=== PATIENT | male | born 1985 ===

== ENCOUNTER 2022-08-13 22:03 | Inpatient (IN) | payer MEDICAID, OTHER, SELFPAY ==
[2022-08-13 22:30] VITALS: BP 133/96; PULSE 88; RESP 16; TEMP 36.5; O2SAT 96
[2022-08-13 23:04] VITALS: BMI 23.6
--- NOTE | 2022-08-14 00:37 | PC.ADMIT ---
Pt is a 37yoM admitted from [facility] for SI and unspecified anxiety. Pt presented to ED with his friend who was concerned pt may attempt to harm himself. Pt reports he has had increased anxiety and racing thoughts and thoughts of hurting himself recently. Pt moved to the from [place] 4 years ago and has not seen a doctor during that time. Pt reports multiple stressors including from his and missing his family back home. Pt reports he wakes up with intrusive thoughts of ending his life and cannot stop thinking about past mistakes. Pt endorses occasional cocaine use, last used 3 weeks ago, Etoh use 2-3x/week, last used 2 weeks ago, and denies all other substance use including THC and nicotine; Utox neg. Pt denies current SI/HI/AVH, reports hx of banging his head in an attempt to relieve stress about 5 months ago. Pt states he has disrupted sleep and nightmares. He is calm and cooperative on arrival, help seeking and states hinduism is a protective factor for him. Upon arrival to [place] ED pt c/o chest pain, cardiac workup was negative, and labs were notable for WBC 14 and high cholesterol. Pt speaks French only, admission was done via contact lens technician.
[2022-08-14] MEDS: hydrOXYzine HCL 25 MG TABLET PO ×2 (06:39→20:43)
[2022-08-14 08:24] VITALS: BP 119/84; PULSE 83; RESP 18; TEMP 36.2; O2SAT 97
[2022-08-14 08:50] LABS: MANUAL DIFF FLAG NO
[2022-08-14 08:53] LABS: Basophils Absolute Auto 0.1 X10*3/uL (0.0-0.2); Basophils Percent Auto 0.6 % (0-2); Eosinophils Absolute Auto 0.1 X10*3/uL (0.0-0.4); Eosinophils Percent Auto 0.5 % (0-4); Hematocrit 50.4 % (42.0-52.0); Hemoglobin 16.8 g/dl (14.0-18.0); Imm Gran Abs Auto 0.04 X10*3/uL (0.00-0.03); Imm Gran Pct Auto 0.4 % (0.0-0.4); Lymphocytes Absolute Auto 2.2 X10*3/uL (1.2-4.9); Lymphocytes Percent Auto 20.1 % (20-40); Mean Corpuscular HGB Conc 33.3 g/dl (31.0-36.0); Mean Corpuscular Hemoglobin 26.5 pg (27.0-33.0); Mean Corpuscular Volume 79.6 fL (80.0-98.0); Mean Platelet Volume 10.6 fL (9.4-12.4); Monocytes Percent Auto 9.1 % (2-11); Neutrophils Absolute Auto 7.5 x10*3/uL (2.0-8.3); Neutrophils Percent Auto 69.3 % (45-73); Platelet Count 256 X10*3/uL (160-400); Red Blood Count 6.33 X10*6/uL (4.60-5.80); White Blood Count 10.8 X10*3/uL (4.8-10.8)
--- NOTE | 2022-08-14 09:08 | P.HPPS_ITS ---
HPI Date of Service: 08/14/22 Chief Complaint: F41.9 unspecified anxiety HPI Narrative: per [facility] behavioral health note, pt presented to their ED c/o depression and anxiety, with intrusive thoughts of SI (especially when he awakens, be it in the middle of the night, or in the morning). he reported AH telling him to harm himself, as well as some confusion about whether he had recently been drugged, and confusion in general about what is real and what is not. on interview with , pt was seen with remote freight sales broker for [employer], , ROSEMARY, and RN x 2 were in the interview as well. pt expresses depressive Sx as well as psychotic Sx. he keeps seeing the image of a spiral and is concerned that someone might be using this symbol to try to control him and make him do t hings he does not want to do. he denies overt AH today. he would like to get a handle on his anxiety, be OK with himself, and be able to work normally, as his goals for hospitalization. he endorses consistently depressed mood, sleep/wake cycle disturbance, amotivation, anhedonia, rumination, decreased concentration, anorexia, PMR, and SI. he is amenable to trials of zoloft and zyprexa, which a re started today. Past Psychiatric History: h/o psych meds and therapy in [place], most recently 2019. cannot recall the name of med he was on, although he reports it was for anxiety. no h/o psych hosps, SA, SIB (reports h/o head-banging x 1 three yrs ago). Medical Evaluation Reviewed: Hospitalist Cayla Pending [facility] Medical History Alcohol use disorder Cocaine abuse Major depressive disorder with psychotic features Narrative: hyperlipidemia Family History: denies Social History: from [place], family supports in [place]. 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 has 2 boys in [place], 8 and 13 yo. living with a friend in [employer] [facility] [employer] [facility], housing stable. HS grad. 2 sibs. raised by his parents. Substance History: cocaine - MRE 1 week ago. utox NEG. reports he uses rarely, or hardly. once in the past month. alcohol - 6-7 drinks 2-3 times weekly, last use about 10 days VACCINATOR. this pattern is for the past month, prior to that he would drink 1-2x/wk, 2-3 drinks per occasion. tobacco - denies use cannabis - denies opioids - denies stimulants - denies other recreational drugs or substances of abuse - denies Trauma History: denies Diagnostics Vital Signs (24Hr): Vital Signs - 24 hr 08/13/22 22:30 08/14/22 08:24 Temperature 97.7 F 97.2 F Pulse Rate 88 83 Respiratory Rate 16 18 Blood Pressure 133/96 H 119/84 Pulse Oximetry 96 97 Oxygen Delivery Method Room Air Room Air BMI result Body Mass Index 23.6 Labs 08/14/22 08:42 08/14/22 08:42 Labs: Laboratory Results - last 48 hr 08/14/22 08:42 WBC 10.8 RBC 6.33 H Hgb 16.8 Hct 50.4 MCV 79.6 L MCH 26.5 L MCHC 33.3 RDW 14.0 Plt Count 256 MPV 10.6 Immature Gran % (Auto) 0.4 Neut % (Auto) 69.3 Lymph % (Auto) 20.1 [place] % (Auto) 9.1 Eos % (Auto) 0.5 Baso % (Auto) 0.6 Lymph # (Auto) 2.2 [place] # (Auto) 1.0 Eos # (Auto) 0.1 Baso # (Auto) 0.1 Abs Immat Gran (auto) 0.04 H Absolute Neuts (auto) 7.5 Absolute Nucleated RBC 0.000 Nucleated RBC % (auto) 0.0 Meds/Allergies Meds Home Medications Medication Instructions Recorded Confirmed Type No Known Home Meds 08/14/22 08/14/22 History Allergies Allergies Allergy/AdvReac Type Severity Reaction Status Date / Time No Known Allergies Allergy Verified 08/13/22 22:11 Mental Status Exam Mental Status Exam Narrative: calm, cooperative. general PMR. adequately dressed and groomed. speech nml rate, decr amount, nml loudness, flattened tone, nml latency. thoughts linear and logical with apparent paranoid delusions (see HPI). affect constricted, normo-intense, non-labile. mood depressed and anxious. denies SI/SIBI/HI/AVH at the time of interview, bu SI/SIBI this morning upon awakening. Assessment & Plan Assessment & Plan (1) Major depressive disorder with psychotic features: Status: Acute Code(s): F32.3 - Major depressive disorder, single episode, severe with psychotic features Patient educated on: diagnosis and medication risk/benefits Reason for continued inpatient stay Substantial Risk for: harm to self, inability to function and rapid decompensation Statement Statement: I have reviewed the history and physical and performed a pertinent examination on my patient. No changes have occurred unless specified. If the History and Physical was not performed prior to admission, the Hospitalist's service will be consulted for completing the admission physical. Time Spent With Patient Time: Total time managing care of this patient today __90__ minutes.
[2022-08-14 09:20] LABS: Estimated Average Glucose 111 mg/dL; Hemoglobin A1c % 5.5 %
[2022-08-14 09:22] LABS: Alanine Aminotransferase 70 U/L (0-40); Albumin Level 4.4 g/dL (3.5-5.0); Alkaline Phosphatase 69 U/L (39-117); Anion Gap 13 (12-20); Aspartate Amino Transferase 36 U/L (5-37); Bilirubin Direct 0.3 mg/dL (0.0-0.5); Bilirubin Total 1.1 mg/dL (0.0-1.0); Blood Urea Nitrogen 15 mg/dL (9-16); Calcium 9.4 mg/dL (8.4-10.2); Carbon Dioxide 29 mmol/L (22-29); Chloride 103 mmol/L (96-108); Cholesterol 184 mg/dL; Creatinine Clr Calc Pharmacy 93.1; Estimated Glomerular Filt Rate > 60; Glucose Fasting 113 mg/dL (60-99); HDL Cholesterol 30 mg/dL; LDL Cholesterol Calculated 143 mg/dl; Potassium 4.5 mmol/L (3.3-5.1); Sodium 140 mmol/L (135-145); Total Protein 6.6 g/dL (6.5-8.0); Triglycerides 56 mg/dL
[2022-08-14 09:49] LABS: Free T4 (Free Thyroxine) 1.18 ng/dL (0.71-1.85); Thyroid Stimulating Hormone 2.19 uIU/mL (0.32-4.0); Vitamin B12 947 pg/mL (200-900)
[2022-08-14] MEDS: OLANZapine 2.5 MG TABLET PO (13:37)
--- NOTE | 2022-08-14 14:49 | P.CONHOSP_ITS ---
History of Present Illness Data of Consult Service Date: 08/14/22 Requesting physician: Lamonte Lucia Primary Care Provider: Unknown Physician HPI Reason for consult: medical H&P 37-year-old male admitted to Psychiatry with consult placed hospitalist service for medical H and P. Patient has no complaints at this time. He tells me he consumes about 6 drinks nightly 6-7 days per week. He also uses cocaine on a regular basis, last use was several days ago. Denies any cigarette use. He is not currently exhibiting any signs of alcohol withdrawal and states that he feels fatigued but otherwise well. Review of Systems Review of Systems: General: No fevers, malaise, unintentional weight loss HEENT: No blurred vision, diplopia. No sore throat, nasal congestion, rhinorrhea, sinus pain, ear pain Cardiovascular: No chest pain, palpitations, or leg edema Respiratory: No shortness of breath, wheezing, cough GI: No abdominal pain, nausea, vomiting, diarrhea, constipation, melena, hematochezia : No dysuria, hematuria, increased urinary frequency, decreased urinary output MSK: No myalgia, back pain Neuro: No headaches, weakness, paresthesias Skin: No rashes or lesions PMFSH Medical History Alcohol use disorder Cocaine abuse Major depressive disorder with psychotic features Social History Household Members: Unknown / Unable to assess Housing: Apartment Do you presently have visiting nurse or other home services: No Alcohol intake: current Alcohol intake frequency: 3 or more drinks per day Patient Tobacco Use Status: Never used Tobacco e-Cigarette/Vaping Use: Never Used Substance Use Type: Crack/Cocaine service: No Sexual orientation: Straight/Heterosexual Meds Allergies Allergy/AdvReac Type Severity Reaction Status Date / Time No Known Allergies Allergy Verified 08/13/22 22:11 Active Medications: Current Medications Acetaminophen (Acetaminophen 325 Mg Tablet) 650 mg PO Q6H PRN PRN Reason: Headache/Pain Mild Scale (1-3) Al Hydroxide/Mg Hydroxide (Magnesium Hydrox/Alum Hydrox 30 Ml Oral.Susp) 30 ml PO Q6H PRN PRN Reason: Heartburn/Nausea Hydroxyzine HCl (Hydroxyzine Hcl 25 Mg Tablet) 25 mg PO Q6H PRN PRN Reason: Anxiety Last Admin: 08/14/22 06:39 Dose: 25 mg Magnesium Hydroxide (Milk Of Magnesia 30 Ml Oral.Susp) 30 ml PO DAILY PRN PRN Reason: Constipation Nicotine Polacrilex (Nicotine Polacrilex 2 Mg Gum) 4 mg BUCCAL Q2H PRN PRN Reason: Nicotine Cravings Olanzapine (Olanzapine 2.5 Mg Tablet) 2.5 mg PO DAILY FRANK Last Admin: 08/14/22 13:37 Dose: 2.5 mg Olanzapine (Olanzapine 5 Mg Tablet) 5 mg PO BEDTIME FRANK Olanzapine (Olanzapine 5 Mg Tablet) 5 mg PO BEDTIME PRN PRN Reason: insomnia Sertraline HCl (Sertraline Hcl 50 Mg Tablet) 50 mg PO DAILY [facility] Home Medications Medication Instructions Recorded Confirmed Last Taken Type No Known Home Meds 08/14/22 08/14/22 Unknown History Physical Exam Vital Signs and Narrative: Vital Signs: Last Vital Signs Temp 97.2 F 08/14/22 08:24 Pulse 83 08/14/22 08:24 Resp 18 08/14/22 08:24 BP 119/84 08/14/22 08:24 Pulse Ox 97 08/14/22 08:24 O2 Del Method Room Air 08/14/22 08:24 BMI result Body Mass Index 23.6 Constitutional - Awake and Alert, No apparent distress Eyes - PERRLA, EOMI Cardiovascular - S1S2, RRR, No edema Respiratory - Normal lung expansion, Normal respiratory effort, No respiratory distress, CTA bilaterally Gastrointestinal - NT / ND; +BS; No rebound or guarding Extremities - no calf tenderness bilaterally, no swelling Musculoskeletal - Normal inspection, normal ROM Skin - Warm/Dry Neurological - Alert & oriented x3, CN II-XII in tact, 5/5 strength BUE and BLE, no tremors Psychological - Appropriate affect Results Labs 08/14/22 08:42 08/14/22 08:42 Labs: Laboratory Results - last 24 hr 08/14/22 08/14/22 08/14/22 08:42 08:42 08:42 MCV 79.6 L MCH 26.5 L MCHC 33.3 RDW 14.0 Plt Count 256 MPV 10.6 Immature Gran % (Auto) 0.4 Neut % (Auto) 69.3 Lymph % (Auto) 20.1 [place] % (Auto) 9.1 Eos % (Auto) 0.5 Baso % (Auto) 0.6 Lymph # (Auto) 2.2 [place] # (Auto) 1.0 Eos # (Auto) 0.1 Baso # (Auto) 0.1 Abs Immat Gran (auto) 0.04 H Absolute Neuts (auto) 7.5 Absolute Nucleated RBC 0.000 Nucleated RBC % (auto) 0.0 Anion Gap 13 Estim Creat Clear Calc 93.1 Estimated GFR > 60 Fasting Glucose 113 H Estimat Average Glucose 111 Hemoglobin A1c % 5.5 Calcium 9.4 Total Bilirubin 1.1 H Direct Bilirubin 0.3 AST 36 ALT 70 H Alkaline Phosphatase 69 Total Protein 6.6 Albumin 4.4 Triglycerides 56 Cholesterol 184 LDL Cholesterol, Calc 143 HDL Cholesterol 30 Vitamin B12 947 H Folate 16.0 TSH 2.19 Free T4 1.18 Assessment and Plan (1) Routine medical exam: Status: Acute Plan 37-year-old male admitted to Psychiatry with consult placed hospitalist service for medical H and P. #MDD -plan per psychiatry #Alcohol use disorder -no evidence of wthdrawal currently -However, would recommend monitoring on CIWA given reported alcohol consumption (6 drinks daily 6-7 days per week) -Plan per psychiatry #Cocaine abuse -plan per psychiatry Thank you for allowing me to participate in this consult. Signing off at this time. Please do not hesitate to call for further questions. Time Spent With Patient Time: Total time managing care of this patient today ____ minutes.
[2022-08-14 19:52] VITALS: BP 119/84; PULSE 74; RESP 16; TEMP 36.4; O2SAT 97
[2022-08-14] MEDS: OLANZapine 5 MG TABLET PO (20:43)
[2022-08-15 06:00] VITALS: BP 105/55; PULSE 76; RESP 18; TEMP 36.7; O2SAT 98
[2022-08-15] MEDS: Sertraline HCL 50 MG TABLET PO (08:25)
[2022-08-15] MEDS: OLANZapine 2.5 MG TABLET PO (08:25)
[2022-08-15 11:00] VITALS: BMI 28.0
[2022-08-15] MEDS: hydrOXYzine HCL 25 MG TABLET PO (12:46)
--- NOTE | 2022-08-15 14:53 | HO.PSYCHPN ---
Subjective Subjective Date of Service: 08/15/22 Reason For Visit: F41.9 unspecified anxiety Interim History: seen with SW and with tele-distribution systems superintendent. continues to espouse severe depression and to demonstrate psychotic Sx. states he slept well and awakened with negative thoughts. denies SI/SIBI. concerned someone is chasing him. c/o sedation from morning zyprexa, asks for dosing to be DCed. per staff, depressed. tearful at times. sleeping well. not attending groups. no SI/HI. Mental Status Exam Mental Status Exam Narrative: calm, cooperative. general PMR. adequately dressed and groomed. speech nml rate, amount, loudness, flattened tone, nml latency. thoughts linear and logical with apparent paranoid delusions (see SUB). affect constricted, normo-intense, non-labile. mood depressed and anxious. denies SI/SIBI/HI/AVH at the time of interview. Diagnostics Vital Signs (24Hr): Vital Signs - 24 hr 08/14/22 19:52 08/15/22 06:00 Temperature 97.6 F 98.0 F Pulse Rate 74 76 Respiratory Rate 16 18 Blood Pressure 119/84 105/55 L Pulse Oximetry 97 98 Oxygen Delivery Method Room Air Room Air BMI result Body Mass Index 28.0 Labs 08/14/22 08:42 08/14/22 08:42 Labs: Laboratory Results - last 48 hr 08/14/22 08/14/22 08/14/22 08:42 08:42 08:42 WBC 10.8 RBC 6.33 H Hgb 16.8 Hct 50.4 MCV 79.6 L MCH 26.5 L MCHC 33.3 RDW 14.0 Plt Count 256 MPV 10.6 Immature Gran % (Auto) 0.4 Neut % (Auto) 69.3 Lymph % (Auto) 20.1 [place] % (Auto) 9.1 Eos % (Auto) 0.5 Baso % (Auto) 0.6 Lymph # (Auto) 2.2 [place] # (Auto) 1.0 Eos # (Auto) 0.1 Baso # (Auto) 0.1 Abs Immat Gran (auto) 0.04 H Absolute Neuts (auto) 7.5 Absolute Nucleated RBC 0.000 Nucleated RBC % (auto) 0.0 Sodium 140 Potassium 4.5 Chloride 103 Carbon Dioxide 29 Anion Gap 13 BUN 15 Creatinine 1.05 Estim Creat Clear Calc 93.1 Estimated GFR > 60 Fasting Glucose 113 H Estimat Average Glucose 111 Hemoglobin A1c % 5.5 Calcium 9.4 Total Bilirubin 1.1 H Direct Bilirubin 0.3 AST 36 ALT 70 H Alkaline Phosphatase 69 Total Protein 6.6 Albumin 4.4 Triglycerides 56 Cholesterol 184 LDL Cholesterol, Calc 143 HDL Cholesterol 30 Vitamin B12 947 H Folate 16.0 TSH 2.19 Free T4 1.18 Medications Medications Current Medications Acetaminophen (Acetaminophen 325 Mg Tablet) 650 mg PO Q6H PRN PRN Reason: Headache/Pain Mild Scale (1-3) Al Hydroxide/Mg Hydroxide (Magnesium Hydrox/Alum Hydrox 30 Ml Oral.Susp) 30 ml PO Q6H PRN PRN Reason: Heartburn/Nausea Hydroxyzine HCl (Hydroxyzine Hcl 25 Mg Tablet) 25 mg PO Q6H PRN PRN Reason: Anxiety Last Admin: 08/14/22 20:43 Dose: 25 mg Magnesium Hydroxide (Milk Of Magnesia 30 Ml Oral.Susp) 30 ml PO DAILY PRN PRN Reason: Constipation Nicotine Polacrilex (Nicotine Polacrilex 2 Mg Gum) 4 mg BUCCAL Q2H PRN PRN Reason: Nicotine Cravings Olanzapine (Olanzapine 5 Mg Tablet) 5 mg PO BEDTIME FRANK Last Admin: 08/14/22 20:43 Dose: 5 mg Olanzapine (Olanzapine 5 Mg Tablet) 5 mg PO BEDTIME PRN PRN Reason: insomnia Sertraline HCl (Sertraline Hcl 50 Mg Tablet) 50 mg PO DAILY [facility] Last Admin: 08/15/22 08:25 Dose: 50 mg Allergies Allergies Allergy/AdvReac Type Severity Reaction Status Date / Time No Known Allergies Allergy Verified 08/13/22 22:11 Assessment & Plan Assessment & Plan (1) Major depressive disorder with psychotic features: Status: Acute Code(s): F32.3 - Major depressive disorder, single episode, severe with psychotic features (2) Routine medical exam: Status: Acute Code(s): Z00.00 - Encounter for general adult medical examination without abnormal findings Assessment and Plan: 37-year-old male admitted to Psychiatry with consult placed hospitalist service for medical H and P. #MDD -plan per psychiatry #Alcohol use disorder -no evidence of [place] currently -However, would recommend monitoring on [facility] given reported alcohol consumption (6 drinks daily 6-7 days per week) -Plan per psychiatry #Cocaine abuse -plan per psychiatry Thank you for allowing me to participate in this consult. Signing off at this time. Please do not hesitate to call for further questions. Plan 08/14: started zyprexa 5 mg QHS for insomnia, psychosis. 09/14: started zyprexa 2.5 mg daily for anxiety/psychosis and zoloft 50 mg daily for depression. pt reported sedation from morning dose of zyprexa, so it was DCed after just one day. no other changes. Patient educated on: diagnosis and medication risk/benefits Reason for continued inpatient stay Substantial Risk for: inability to function and rapid decompensation Time Spent With Patient Time: Total time managing care of this patient today __35__ minutes.
--- NOTE | 2022-08-15 17:19 | PC.NURSE ---
Pt signed a 3 day on 08/15, up on Sunday 08/20, optical instrument repairer used
[2022-08-15 20:30] VITALS: BP 115/76; PULSE 86; RESP 16; TEMP 36.8; O2SAT 96
[2022-08-15] MEDS: OLANZapine 5 MG TABLET PO (21:55)
[2022-08-16] MEDS: Sertraline HCL 50 MG TABLET PO (08:54)
[2022-08-16 13:45] VITALS: BP 120/75; PULSE 80; TEMP 36.7; O2SAT 97
--- NOTE | 2022-08-16 13:51 | HO.PSYCHPN ---
Subjective Subjective Date of Service: 08/16/22 Reason For Visit: F41.9 unspecified anxiety Interim History: seen with SW and tele-spanish interpreter/translator. states he is feeling a little bit better. calmer and more at ease. states he is sleeping very well. reports he is having very few negative thoughts. feeling safe, not worrying about the spiral and others trying to control or harm him. says that was only in a dream when asked about it. discussed 3-day notice up friday, plan to continue current regimen. per staff, 3-day up 08/20. vaguely feeling scared. slept OK. isolative. not attending groups. no SI/HI. + depression. passive SI. eating, med-compliant. Mental Status Exam Mental Status Exam Narrative: calm, cooperative. general PMR. adequately dressed and groomed. speech nml rate, amount, loudness, flattened tone, nml latency. thoughts linear and logical with no delusions or paranoia. affect constricted, normo-intense, non-labile. mood depressed. no SI/HI/AVH expressed. Diagnostics Vital Signs (24Hr): Vital Signs - 24 hr 08/15/22 20:30 08/16/22 13:45 Temperature 98.2 F 98.0 F Pulse Rate 86 80 Respiratory Rate 16 Blood Pressure 115/76 120/75 Pulse Oximetry 96 97 Oxygen Delivery Method Room Air Room Air BMI result Body Mass Index 28.0 Labs 08/14/22 08:42 08/14/22 08:42 Medications Medications Current Medications Acetaminophen (Acetaminophen 325 Mg Tablet) 650 mg PO Q6H PRN PRN Reason: Headache/Pain Mild Scale (1-3) Al Hydroxide/Mg Hydroxide (Magnesium Hydrox/Alum Hydrox 30 Ml Oral.Susp) 30 ml PO Q6H PRN PRN Reason: Heartburn/Nausea Hydroxyzine HCl (Hydroxyzine Hcl 25 Mg Tablet) 25 mg PO Q6H PRN PRN Reason: Anxiety Last Admin: 08/14/22 20:43 Dose: 25 mg Magnesium Hydroxide (Milk Of Magnesia 30 Ml Oral.Susp) 30 ml PO DAILY PRN PRN Reason: Constipation Nicotine Polacrilex (Nicotine Polacrilex 2 Mg Gum) 4 mg BUCCAL Q2H PRN PRN Reason: Nicotine Cravings Olanzapine (Olanzapine 5 Mg Tablet) 5 mg PO BEDTIME FRANK Last Admin: 08/15/22 21:55 Dose: 5 mg Olanzapine (Olanzapine 5 Mg Tablet) 5 mg PO BEDTIME PRN PRN Reason: insomnia Sertraline HCl (Sertraline Hcl 50 Mg Tablet) 50 mg PO DAILY FRANK Last Admin: 08/16/22 08:54 Dose: 50 mg Allergies Allergies Allergy/AdvReac Type Severity Reaction Status Date / Time No Known Allergies Allergy Verified 08/13/22 22:11 Assessment & Plan Assessment & Plan (1) Major depressive disorder with psychotic features: Status: Acute Code(s): F32.3 - Major depressive disorder, single episode, severe with psychotic features (2) Routine medical exam: Status: Acute Code(s): Z00.00 - Encounter for general adult medical examination without abnormal findings Assessment and Plan: 37-year-old male admitted to Psychiatry with consult placed hospitalist service for medical H and P. #MDD -plan per psychiatry #Alcohol use disorder -no evidence of wthdrawal currently -However, would recommend monitoring on CIWA given reported alcohol consumption (6 drinks daily 6-7 days per week) -Plan per psychiatry #Cocaine abuse -plan per psychiatry Thank you for allowing me to participate in this consult. Signing off at this time. Please do not hesitate to call for further questions. Plan 08/14: started zyprexa 5 mg QHS for insomnia, psychosis. 08/15: started zyprexa 2.5 mg daily for anxiety/psychosis and zoloft 50 mg daily for depression. pt reported sedation from morning dose of zyprexa, so it was DCed after just one day. no other changes. 08/16: denies paranoid delusions, fewer negative thoughts. mood improved. continue current mgmt. Reason for continued inpatient stay Substantial Risk for: inability to function and rapid decompensation Time Spent With Patient Time: Total time managing care of this patient today __35__ minutes.
[2022-08-16 20:55] VITALS: BP 124/83; PULSE 98; RESP 18; TEMP 36.4; O2SAT 97
[2022-08-16] MEDS: hydrOXYzine HCL 25 MG TABLET PO (21:08)
[2022-08-16] MEDS: OLANZapine 5 MG TABLET PO (21:08)
[2022-08-17 08:40] VITALS: BP 122/78; PULSE 81; RESP 18; TEMP 36.6; O2SAT 97
[2022-08-17] MEDS: Sertraline HCL 50 MG TABLET PO (09:18)
[2022-08-17] MEDS: hydrOXYzine HCL 25 MG TABLET PO (12:12)
[2022-08-17] MEDS: OLANZapine 2.5 MG TABLET PO ×2 (12:51→18:30)
--- NOTE | 2022-08-17 16:21 | P.PNPSI_ITS ---
Subjective Subjective Date of Service: 08/17/22 Reason For Visit: F41.9 unspecified anxiety Interim History: i feel fine, but then says he is continuing to have some confusion about memor ies he has being real or not. sleeping well. severe anxiety upon awakening. encouraged to use PRNs of zyprexa. reassured he will continue to make progress with medications he is on. per staff, trouble distinguishing dreams from reality, memories real or not? Mental Status Exam Mental Status Exam Narrative: calm, cooperative. general PMR. adequately dressed and groomed. speech nml rate, amount, loudness, flattened tone, nml latency. thoughts linear and logical with no delusions or paranoia. affect constricted, normo-intense, non- labile. mood depressed. no SI/HI/AVH expressed. Diagnostics Vital Signs (24Hr): Vital Signs - 24 hr 08/16/22 20:55 08/17/22 08:40 Temperature 97.6 F 97.9 F Pulse Rate 98 81 Respiratory Rate 18 18 Blood Pressure 124/83 122/78 Pulse Oximetry 97 97 Oxygen Delivery Method Room Air Room Air BMI result Body Mass Index 28.0 Labs 08/14/22 08:42 08/14/22 08:42 Medications Medications Current Medications Acetaminophen (Acetaminophen 325 Mg Tablet) 650 mg PO Q6H PRN PRN Reason: Headache/Pain Mild Scale (1-3) Al Hydroxide/Mg Hydroxide (Magnesium Hydrox/Alum Hydrox 30 Ml Oral.Susp) 30 ml PO Q6H PRN PRN Reason: Heartburn/Nausea Hydroxyzine HCl (Hydroxyzine Hcl 25 Mg Tablet) 25 mg PO Q6H PRN PRN Reason: Anxiety Last Admin: 08/17/22 12:12 Dose: 25 mg Magnesium Hydroxide (Milk Of Magnesia 30 Ml Oral.Susp) 30 ml PO DAILY PRN PRN Reason: Constipation Nicotine Polacrilex (Nicotine Polacrilex 2 Mg Gum) 4 mg BUCCAL Q2H PRN PRN Reason: Nicotine Cravings Olanzapine (Olanzapine 5 Mg Tablet) 5 mg PO BEDTIME FRANK Last Admin: 08/16/22 21:08 Dose: 5 mg Olanzapine (Olanzapine 5 Mg Tablet) 5 mg PO BEDTIME PRN PRN Reason: insomnia Olanzapine (Olanzapine 2.5 Mg Tablet) 2.5 mg PO Q4H PRN PRN Reason: anxiety/restlessness Last Admin: 08/17/22 12:51 Dose: 2.5 mg Sertraline HCl (Sertraline Hcl 50 Mg Tablet) 50 mg PO DAILY FRANK Last Admin: 08/17/22 09:18 Dose: 50 mg Allergies Allergies Allergy/AdvReac Type Severity Reaction Status Date / Time No Known Allergies Allergy Verified 08/13/22 22:11 Assessment & Plan Assessment & Plan (1) Major depressive disorder with psychotic features: Status: Acute Code(s): F32.3 - Major depressive disorder, single episode, severe with psychotic fea genesis (2) Routine medical exam: Status: Acute Code(s): Z00.00 - Encounter for general adult medical examination without abnormal findings Assessment and Plan: 37-year-old male admitted to Psychiatry with consult placed hospitalist service for medical H and P. #MDD -plan per psychiatry #Alcohol use disorder -no evidence of wthdrawal currently -However, would recommend monitoring on CIWA given reported alcohol consumption (6 drinks daily 6-7 days per week) -Plan per psychiatry #Cocaine abuse -plan per psychiatry Thank you for allowing me to participate in this consult. Signing off at this time. Please do not hesitate to call for further questions. Plan 08/14: started zyprexa 5 mg QHS for insomnia, psychosis. 08/15: started zyprexa 2.5 mg daily for anxiety/psychosis and zoloft 50 mg daily for depression. pt reported sedation from morning dose of zyprexa, so it was DCed after just one day. no other changes. 08/16: denies paranoid delusions, fewer negative thoughts. mood improved. continue current mgmt. 08/17: some confusion about memories he has being real or not. continue current mgmt. Reason for continued inpatient stay Substantial Risk for: inability to function and rapid decompensation Time Spent With Patient Time: Total time managing care of this patient today _25___ minutes.
[2022-08-17 20:40] VITALS: BP 128/82; PULSE 104; RESP 16; TEMP 36.1; O2SAT 98
[2022-08-17] MEDS: OLANZapine 5 MG TABLET PO (20:42)
[2022-08-18 09:00] VITALS: BP 129/79; PULSE 80; RESP 20; TEMP 36.7; O2SAT 96
[2022-08-18] MEDS: Sertraline HCL 50 MG TABLET PO (09:02)
[2022-08-18] MEDS: OLANZapine 2.5 MG TABLET PO ×2 (12:38→18:21)
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
[2022-08-18 18:00] VITALS: BP 124/81; PULSE 114; RESP 18; TEMP 36.6; O2SAT 96
[2022-08-18] MEDS: hydrOXYzine HCL 25 MG TABLET PO (18:21)
[2022-08-18] MEDS: OLANZapine 7.5 MG TABLET PO (21:20)
[2022-08-19 08:00] VITALS: BP 152/72; PULSE 84; TEMP 36.3; O2SAT 97
[2022-08-19] MEDS: Sertraline HCL 50 MG TABLET PO (08:44)
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
[2022-08-19 18:00] VITALS: BP 122/79; PULSE 95; RESP 16; TEMP 36.2; O2SAT 96
[2022-08-19] MEDS: hydrOXYzine HCL 25 MG TABLET PO (18:25)
[2022-08-19] MEDS: OLANZapine 7.5 MG TABLET PO (20:30)
[2022-08-20] MEDS: Sertraline HCL 50 MG TABLET PO (09:41)
[2022-08-20] MEDS: OLANZapine 2.5 MG TABLET PO ×2 (10:38→14:12)
[2022-08-20] MEDS: hydrOXYzine HCL 25 MG TABLET PO (16:46)
[2022-08-20] MEDS: OLANZapine 10 MG TABLET PO (20:08)
--- NOTE | 2022-08-20 20:23 | PC.NURSE ---
patient was discharged to friends. given all belongings.
== END 2022-08-20 20:22 | disposition home or self-care (01) | DRG 751 ==
PROVIDERS: Admitting Provider Psychiatry & Neurology Psychiatry; Visit Provider Psychiatry & Neurology Psychiatry
DX: F32.3 Major depressive disorder, single episode, severe with psychotic features (principal); F41.9 Anxiety disorder, unspecified; R45.851 Suicidal ideations; F10.10 Alcohol abuse, uncomplicated; F14.10 Cocaine abuse, uncomplicated; Z79.899 Other long term (current) drug therapy
CPT/HCPCS: 36415; 80053; 80061; 80076; 82607; 82746; 83036; 84439; 84443; 85025